=== PATIENT | male | born 1950 | race Caucasian/White ===

== ENCOUNTER 2017-05-01 06:50 | Day surgery (SDC) | payer MEDICARE ==
[~2017-05-01] VITALS: Ht 175.3 cm; Wt 75.0 kg
[2017-05-01] MEDS ORDERED: IODIXANOL 320 MG/ML 50 ML VIAL (for RAD SPEC) I-ARTERIAL ONE (06:51)
[2017-05-01 07:13] VITALS: BP 159/98; PULSE 98; RESP 20; TEMP 97.6; O2SAT 94
[2017-05-01] MEDS ORDERED: METH1CHW3 (07:35)
[2017-05-01] MEDS ORDERED: NIFE30TA8 (07:35)
[2017-05-01 07:58] LABS: AUTOMATED NEUTROPHIL # 12.6 TH/MM3 (1.8-7.7); BASOPHIL % 0.1 % (0.0-2.0); EOSINOPHIL % 0.3 % (0.0-4.0); HEMATOCRIT 51.1 % (39.0-51.0); HEMO FLAGS DIFF FINAL; LYMPH % 4.1 % (9.0-44.0); LYMPHOCYTE # 0.6 TH/MM3 (1.0-4.8); MEAN CORPUSCULAR HEMOGLOBIN 32.3 PG (27.0-34.0); MEAN CORPUSCULAR HGB CONC 33.7 % (32.0-36.0); MONO % 7.1 % (0.0-8.0); NEUT % 88.4 % (16.0-70.0); PLATELET COUNT 184 TH/MM3 (150-450); RED BLOOD COUNT 5.32 MIL/MM3 (4.50-5.90); WHITE BLOOD COUNT 14.2 TH/MM3 (4.0-11.0)
[2017-05-01 08:05] LABS: APTT (PATIENT) 24.4 SEC (24.3-30.1); PROTHROMBIN TIME - PATIENT 11.2 SEC (9.8-11.6)
[2017-05-01 08:27] LABS: BICARBONATE 25.7 MEQ/L (21.0-32.0); POTASSIUM 3.8 MEQ/L (3.5-5.1)
[2017-05-01] MEDS ORDERED: ceFAZolin 2 GM PREMIX 50 ML IV SCH (08:45)
[2017-05-01] MEDS ORDERED: MIDAZOLAM HCL 5 MG/5 ML VIAL ONE (09:09)
[2017-05-01 10:30] VITALS: BP_SYST 151; BP_SYST 155; BP_DIAS 101; PULSE 80; PULSE 85; RESP 16; TEMP 97.6; O2SAT 93
[2017-05-01] MEDS ORDERED: ACETAMINOPHEN 325 MG TAB PO PRN (10:30)
--- NOTE | 2017-05-01 11:07 | PD.RAD ---
Post Procedure Progress Note Pre Procedure Diagnosis: (1) Ischemic finger Post Procedure Diagnosis: (1) Ischemic finger Procedure Date: May 01, 2017 Supervising Radiologist: Clifford Cerna Estimated blood loss: 2CC Anesthesia: Local, Conscious Sedation Plan of Activity Patient to Unit: ROPU Patient Condition: Good Additional Comments: Angio completed. 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 Radial artery is normal and provides collateral circulation via the palmar arch but 4th digit has very limited blood flow on the angio. The more central circulation is normal. Full detailed report to follow in pacs. See PACS Report for procedural detail/treatment Clifford Cerna MD May 01, 2017 10:27
[2017-05-01 12:01] VITALS: BP 152/94; PULSE 78; RESP 18; O2SAT 95
--- NOTE | 2017-05-01 12:28 | RADRPT ---
EXAM DATE/TIME: 05/01/2017 09:22 [place] COMPARISON: ANGIOGRAM, SELECT + VESSEL, May 01, 2017, 0:00. INDICATIONS : Patient with ischemic right fourth digit. MEDICAL HISTORY : Skin cancer Cardiac disease SURGICAL HISTORY : Left leg fracture repair Bilateral rotator cuff Carpal tunnel release Tonsillectomy Heart ablation ENCOUNTER: Initial ACUITY: 1 week PAIN SCORE: 3/10 LOCATION: Right hand FLUORO TIME: 8.9 minutes IMAGE SERIES: 9 ACCESS SITE: Right Femoral artery SEDATION TIME: 20 minutes CONTRAST: 1.) 80 cc Visipaque (iodixanol) MEDICATION(S): 1.) 4 mg midazolam (Versed) IV 2.) 200 mcg fentanyl (Sublimaze) IV DEVICE(S): 1.) Right common femoral artery 6FR Angio-Seal PROCEDURE : 1. Ultrasound-guided puncture of the access site. 2. Angiography of the access site prior to closure device. 3. Conscious sedation with continuous EKG and Oximetry monitoring. 4. Percutaneous closure of the access site. 5. Angiography of the right upper extremity. The risks, benefits and alternatives to the procedure were explained and verbal and written consent w as obtained. The site was prepped in sterile fashion. Full sterile technique was used, including ca p, mask, sterile gloves and gown and a large sterile sheet. Hand hygiene and 2% chlorhexidine and/or betadine/alcohol prep was utilized per protocol for cutaneous antisepsis. Sterile gel and sterile p robe cover were utilized for ultrasound guidance. The skin and subcutaneous tissues were infiltrated with local anesthetic solution. With ultrasound and fluoroscopic guidance the right common femoral artery was accessed and a 4 Croatian introducer sheath was placed. Angiography of the common femoral artery was performed for evaluation prior to percutaneous closure device placement. A 4 Croatian JB2 catheter and a 0.035 angle Glidewire were passed into the aortic arch. The innominate artery origin was evaluated. The catheter was advanced into the right subclavian. Runoff to the right upper extremity was performed. A 0.035 angle Glidewire and a single end hole glide catheter were adv anced down to the brachial artery and detailed evaluation of the hand was performed. Results: The innominate artery origin is widely patent. The right subclavian artery origin is widely patent. T he axillary and brachial arteries are sizable vessels and widely patent throughout their course. Belo w the elbow, the examination demonstrates a normal appearing trifurcation with the origins of the rad ial, ulnar and interosseous arteries widely patent. Evaluation of the distal circulation demonstrates the radial artery to be a large vessel and widely p atent throughout its course. The intraosseous artery is patent down to the level of the wrist. Delaye d imaging demonstrates occlusion of the distal aspect of the ulnar artery. It can be followed down to the level of the wrist on the delayed images. The level of occlusion appears to be at the level of t he hyperthenar eminence likely at the level of the hamate. The princeps pollicis artery is patent. Th e digital arteries of the first, second and third digits are patent. There is limited flow to the fou rth digit. There is limited reconstitution of the digital artery and it can be identified out to the level of the mid proximal phalanx. There is limited but somewhat better collateral circulation to the fifth digit. 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 The case was discussed with Dr. Marshall immediately post procedure. Hemostasis was obtained with the prescribed medicated closure device. Conscious sedation was perform ed with the prescribed dosages and duration as above in the presence of an independent trained radiol ogy nurse to assist in the monitoring of the patient. EKG and oximetry remained stable throughout th e procedure. CONCLUSION: 1. 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 There is very limited collateral flow from the palmar arch to the fourth digit. This is described in detail above. Clifford Cerna MD on May 01, 2017 at 12:19 Board Certified Radiologist. This report was verified electronically.
[2017-05-01 12:30] VITALS: BP 162/103; PULSE 79; RESP 18; O2SAT 95
[2017-05-01 13:00] VITALS: BP 171/96; PULSE 77; RESP 14; O2SAT 95
[2017-05-01 14:15] VITALS: BP 165/94; PULSE 78; RESP 16; O2SAT 95
== END 2017-05-01 14:30 | disposition home or self-care (01) ==
LOC: HROP 06:50 → HRIP 07:24 → HROP 14:30
PROVIDERS: ATTEND Orthopaedic Surgery Hand Surgery
DX: I99.8 Other disorder of circulatory system (principal); I74.8 Embolism and thrombosis of other arteries; R93.8 Abnormal findings on diagnostic imaging of other specified body structures
CPT/HCPCS: 36216; 75710; 75774; 76937; 80048; 85025; 85610; 85730; 99152; 99153; C1760; C1769; C1887; C1894; G0269; J0690; J2250; J3010; Q9967